=== PATIENT | male | born 1975 | race Caucasian/White ===

== ENCOUNTER → 2022-12-08 | Outpatient (CLI) | payer OTHER | LOC: M RAD 15:17 | PROVIDERS: ATTEND Family Medicine | DX: M43.12 Spondylolisthesis, cervical region (principal); M50.20 Other cervical disc displacement, unspecified cervical region; M48.02 Spinal stenosis, cervical region ==

== ENCOUNTER → 2023-01-04 | Outpatient (CLI) | payer OTHER ==
[~2023-01-04] MED LIST: METHACHOLINE KIT INH ONE
== END ==
LOC: M RAD 13:08
PROVIDERS: ATTEND Nurse Practitioner Family
DX: R06.02 Shortness of breath (principal)

== ENCOUNTER → 2023-01-09 | Outpatient (CLI) | payer OTHER | LOC: M CARPUL 10:42 | PROVIDERS: ATTEND Nurse Practitioner Family | DX: R06.02 Shortness of breath (principal) | CPT/HCPCS: 94070; G0463; J7674 ==

== ENCOUNTER 2023-03-07 08:47 | Emergency (ER) | payer OTHER ==
[~2023-03-07] VITALS: Ht 175.3 cm; Wt 83.0 kg
[2023-03-07 08:48] VITALS: BP 126/60; TEMP 97.4
[2023-03-07] MEDS ORDERED: DOXYCYCLINE HYCLATE 100MG TABLET PO ONE (09:40)
[2023-03-07] MEDS ORDERED: NORCO, ANEXSIA 5/325MG TABLET (HYDROcodone/ACETAMINOPHEN) PO ONE (09:40)
[2023-03-07 09:53] VITALS: O2SAT 98
[2023-03-07] MEDS ORDERED: DOXY-443 PO (10:12)
== END 2023-03-07 10:15 | disposition home or self-care (01) ==
LOC: M ED 08:47
DX: L73.9 Follicular disorder, unspecified (principal); J45.909 Unspecified asthma, uncomplicated

== ENCOUNTER 2023-03-12 11:41 | Emergency (ER) | payer OTHER ==
[~2023-03-12] VITALS: Ht 175.3 cm; Wt 81.0 kg
[~2023-03-12 11:41] MED LIST changes: +DOXY-443 PO; -METHACHOLINE KIT INH ONE
[2023-03-12] MEDS ORDERED: FLUORESCEIN OPHTH 1MG STRIP OD ONE (15:30)
[2023-03-12] MEDS ORDERED: PERCOCET 5MG/325MG TAB PO ONE (15:30)
[2023-03-12] MEDS ORDERED: PERC5TAB12 PO (16:02)
[2023-03-12] MEDS ORDERED: VALT1TAB PO (16:02)
[2023-03-12 16:46] VITALS: BP 117/66; TEMP 98; O2SAT 99
== END 2023-03-12 16:47 | disposition home or self-care (01) ==
LOC: M ED 11:41
DX: B02.9 Zoster without complications (principal); G89.4 Chronic pain syndrome; Z88.8 Allergy status to other drugs, medicaments and biological substances; Z91.018 Allergy to other foods

== ENCOUNTER → 2023-08-23 | Outpatient (CLI) | payer OTHER ==
[~2023-08-23] MED LIST changes: +PERC5TAB12 PO; +VALT1TAB PO
== END ==
LOC: M RAD 13:03
PROVIDERS: ATTEND Nurse Practitioner Family
DX: R91.8 Other nonspecific abnormal finding of lung field (principal)